=== PATIENT | male | born 1985 | race American Indian/Alaskan Native ===

== ENCOUNTER 2018-02-08 18:35 | Emergency (ER) | payer OTHER ==
[2018-02-08 18:35] VITALS: BMI 23.5
[2018-02-08 18:42] VITALS: BP 135/83; PULSE 70; RESP 16; TEMP 98; O2SAT 98
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
--- NOTE | 2018-02-09 09:10 | RAD ---
PROCEDURE: Radiographs of both shoulders HISTORY: shoulder injury, fall bilateral pain COMPARISON: No prior. FINDINGS: BONES: Right shoulder: Normal. No fracture. Left shoulder: Normal. No fracture. JOINTS: Right shoulder: Normal. No significant osteoarthritic changes. Left shoulder: Normal. No significant osteoarthritic changes. SOFT TISSUES: Right shoulder: Grossly unremarkable. Right shoulder: Grossly unremarkable. OTHER FINDINGS: None. IMPRESSION: Normal radiographs of the shoulders.
--- NOTE | 2018-02-09 09:11 | RAD ---
PROCEDURE: Cervical Spine Radiographs. HISTORY: Pain. COMPARISON: None. FINDINGS: BONES: Alignment maintained. No fracture. Dens Intact. DISC SPACES: Minimal narrowing of the intervertebral disc space at C5-6 and C6-7 associated with mild osteophyte formation, consistent with early degenerative disc disease. The remaining intervertebral disc spaces are maintained in height. SOFT TISSUES: Normal. No prevertebral soft tissue swelling. OTHER FINDINGS: None. IMPRESSION: No fracture/ dislocation. Mild degenerative disc disease C5-6 and C6-7. Otherwise unremarkable.
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
--- NOTE | 2018-02-09 11:10 | RAD ---
PROCEDURE: Right Hip Radiographs. HISTORY: injury pain, hip pain COMPARISON: None. FINDINGS: BONES: Normal. No fracture. JOINTS: Normal. SOFT TISSUES: Normal. OTHER FINDINGS: None. IMPRESSION: Normal radiographs of right hip.
== END 2018-02-08 20:10 | disposition home or self-care (01) ==
LOC: C.ER 18:35
DX: S16.1XXA Strain of muscle, fascia and tendon at neck level, initial encounter (principal); S43.409A Unspecified sprain of unspecified shoulder joint, initial encounter; M25.551 Pain in right hip; V19.49XA Pedal cycle driver injured in collision with other motor vehicles in traffic accident, initial encounter; Y92.410 Unspecified street and highway as the place of occurrence of the external cause